=== PATIENT | female | born 1965 | race Caucasian/White ===

== ENCOUNTER → 2016-11-10 | Outpatient (CLI) | payer BC ==
--- NOTE | 2016-11-11 09:01 | Diagnostic Imaging Report ---
EXAM: Bilateral Digital Screening Mammography with computer aided detection system (CAD). DATE: November 10, 2016. COMPARISON: December 04, 2015; June 19, 2015; November 12, 2014; November 11, 2013. INDICATION: Breast cancer screening. FINDINGS: The breasts are nearly entirely fatty. There are no suspicious findings in either breast. IMPRESSION: No mammographic evidence of malignancy. Recommend annual screening mammography and clinical breast exam. ACR BI-RADS Category 2: Benign findings. Result letter will be mailed to the patient. Note: At least 10% of breast cancer is not imaged by mammography. Dictated by: Dictated on workstation # [id number]
== END ==
LOC: RAD 08:56
PROVIDERS: ATTEND Family Medicine
DX: Z12.31 Encounter for screening mammogram for malignant neoplasm of breast (principal)

== ENCOUNTER 2017-02-10 07:00 | Day surgery (SDC) | payer BC ==
[~2017-02-10] VITALS: Ht 167.6 cm; Wt 97.0 kg
[~2017-02-10 07:00] MED LIST: LACTATED RINGERS 1,000 ML IV SCH; SODIUM CHLORIDE FLUSH 3 ML SYR IV PRN
--- OUTSIDE RECORDS SUMMARY | 2017-02-10 07:04 | XMS REPORT | Continuity of Care Document ---
Author Author [facility] Address Unknown Phone Unavailable Allergies Active Description Code Type Severity Reaction Onset Reported/Identified Relationship to Patient Clinical Status Yes No Known Drug Allergies [id number] Drug Allergy Unknown N/ A 01/06/2016 Medications Problems Date Dx Coded Attending Type Code Diagnosis Diagnosed By 11/12/2014 Ot V76.12 11/12/2014 SUE HERCULES, KRISTIE Sagastume Ot V76.12 12/11/2014 VENUS HERCULES, GARRET R Ot 793.82 12/17/2014 VENUS HERCULES, GARRET R Ot V76.12 07/06/2015 VENUS HERCULES, GARRET R Ot 793.89 12/16/2015 Ot R92.2 01/30/2016 Ot R92.2 05/04/2016 Chela Easton POSTDOCTORAL SCIENTIST Ot J32.9 CHRONIC SINUSITIS, UNSPECIFIED 08/05/2016 Arnulfo HERCULES, Agustín [place] Ot Z76.89 [facility] 11/17/2016 VENUS HERCULES, GARRET R Ot Z12.31 ENCNTR SCREEN MAMMOGRAM FOR MALIGNANT [place] 11/17/2016 GARRET DONOVAN MD Ot Z12.31 ENCNTR SCREEN MAMMOGRAM FOR MALIGNANT NE 12/14/2016 GARRET DONOVAN MD R Ot Z12.31 ENCNTR SCREEN MAMMOGRAM FOR MALIGNANT NE Procedures Results Test Result Range UA (urinalysis) - 07/25/16 07:52 COLLECTION METHOD RANDOM VOIDED Color of urine by auto Yellow Urine appearance determination Clear Urine pH measurement by automated test strip 5.0 5.0 - 8.0 Specific gravity of urine by automated test strip 1.020 1.005-1.030 PROTEIN, URINE Negative Urine glucose detection by automated test strip 3+ Negative Urine erythrocytes count by automated test strip (number/volume) Trace-intact Negative Urine ketones detection by automated test strip Negative Negative NITRITE,URINE Negative Negative Urine total bilirubin detection by automated test strip Negative Negative Urine urobilinogen measurement by automated test strip (mass/volume) 0.2 0.2-1.0 Urine leukocyte esterase detection by dipstick Trace Negative Microscopic examination of urine - 07/25/16 07:52 Urine volume measurement 12 mL Urine erythrocytes detection by automated method 2-5 Automated urine sediment leukocyte count by microscopy (number/high power field ) Bacteria 2+ Negative SQUAMOUS EPITHELIAL CELL,UR 20-50 MUCOUS,URINE 1+ Complete blood count (CBC) with automated white blood cell (WBC) differential - 07/25/16 08:20 Blood automated leukocyte count 8.05 4.0 -11.0 Erythrocytes 4.45 4.00-5.00 12.0-16.0;g/dL 13.3 12.0-15.5 Hematocrit 40.30 35.00-45.00 Automated erythrocyte mean corpuscular volume 91 80-100 Mean corpuscular hemoglobin (MCH) determination 29.9 26.0-34.0 Automated erythrocyte mean corpuscular hemoglobin concentration measurement ( mass/volume) 33.0 31.0-37.0 Erythrocyte distribution width 14.0 11.8 -15.6 Automated blood platelet count 161 150- 450 Automated blood platelet mean volume measurement 11.9 6.0-9.5 Automated neutrophil percentage 68 51- 67 Lymphocytes/100 leukocytes 18 20-46 Automated monocyte percentage 10 3-11 Eosinophil count auto 5 0-4 Automated basophil percentage 0 0-2 Automated blood neutrophil count 5.4 Blood lymphocytes count (number/volume) 1.4 Automated blood monocyte count 0.8 Blood absolute eosinophil count 0.4 Basophils 0.0 HEMOGLOBIN A1C* - 07/25/16 08:20 HEMOGLOBIN A1C* 5.3 4.0-6.0 Comprehensive metabolic panel - 07/25/16 08:20 Sodium measurement 105 70-110 Carbon dioxide measurement 24 22-29 Serum or plasma anion gap 19.3 3-15 BLOOD UREA NITROGEN 40 7-18 CREATININE SERUM 1.09 0.6-1.2 Brucella species antibody panel (IgG, IgM) 37 10-20 Estimated glomerular filtration rate (GFR) 64.3 Estimated glomerular filtration rate (GFR) non- 53.1 OSMOLALITY,CALCULATED 286 280-300 CALCIUM 9.5 8.8-10.8 Calculated ionized calcium measurement 3.9 3.8-4.6 BILIRUBIN,TOTAL 1.2 0.1-1.0 Serum or plasma alkaline phosphatase measurement 76 38-126 ASPARTATE AMINO TRANSFERASE 21 15-37 ALANINE AMINOTRANSFERASE 26 30-65 Serum or plasma total protein measurement 8.1 6.4-8.5 Serum or plasma albumin measurement 4.7 3.4-5.0 Serum or plasma albumin/globulin mass ratio 1.382 1.1-1.8 THYROID STIMULATING HORMONE* - 07/25/16 08:20 THYROID STIMULATING HORMONE 0.16 0.46- 4.68 LIPID PANEL - 07/25/16 08:20 Cholesterol 134 50-200 HDL Cholesterol 55 40-60 Triglycerides 67 10-150 LDL CHOLESTEROL 66 50-130 VLDL Cholesterol, calc 13 4.00-40.00 Cholesterol.total/Cholesterol.in HDL 2.4 0.0-5.0 Encounters ACCT No. Visit Date/Time Discharge Status Pt. Type Provider Facility Loc./Unit Complaint [id number] 06/19/2015 10:59:00 2014 23:59:59 CLS Outpatient VENUS HERCULES, [facility] RAD [id number] 11/24/2014 08:50:00 2014 23:59:59 CLS Outpatient VENUS HERCULES, [facility] RAD [id number] 11/12/2014 07:39:00 2014 23:59:59 CLS Outpatient VENUS HERCULES, [facility] RAD [id number] 11/11/2013 08:18:00 2013 23:59:59 CLS Outpatient SUE HERCULES, [facility] RAD [id number] 02/10/2017 09:37:00 PEN Preadmit DAY HERCULES, [facility] ASC COLONOSCOPY [id number] 11/10/2016 08:56:00 ACT Outpatient VENUS HERCULES, [facility] RAD Z12.31 SCREENING [id number] 07/25/2016 08:00:00 ACT Outpatient Arnulfo HERCULES , Agustín [facility]LL[facility] [id number] 01/06/2016 17:02:00 [id number] 12/04/2015 09:56:00 Document Registration [id number] 11/09/2012 07:17:00 Document Registration
[2017-02-10 07:12] VITALS: BP 119/65
[2017-02-10] MEDS ORDERED: ATOR10TA56 PO (07:23)
[2017-02-10] MEDS ORDERED: LEVO125T6 PO (07:23)
[2017-02-10] MEDS ORDERED: INSU100I14 SQ (07:23)
[2017-02-10] MEDS ORDERED: INSU100I29 SQ (07:23)
[2017-02-10] MEDS ORDERED: SAXA5TAB PO (07:23)
[2017-02-10] MEDS ORDERED: ASPI-586 PO (07:23)
[2017-02-10] MEDS ORDERED: DAPA10TA PO (07:23)
[2017-02-10] MEDS ORDERED: NF-LISIN40 PO (07:23)
[2017-02-10] MEDS ORDERED: ALFENTANIL 500 MCG/ML (ALFENTA) 5 ML AMP IV ONE (07:41)
[2017-02-10] MEDS ORDERED: MIDAZOLAM 2 MG/2 ML (VERSED) VIAL ONE (07:41)
[2017-02-10] MEDS ORDERED: PROPOFOL 20 ML IV ONE (07:41)
[2017-02-10 08:51] VITALS: BP 108/57
[2017-02-10 09:10] VITALS: BP 105/67
--- NOTE | 2017-02-10 10:55 | OPERATIVE REPORT ---
DATE OF OPERATION: 02/10/2017 PRE-OPERATIVE DIAGNOSIS: Screening colonoscopy POST-OPERATIVE DIAGNOSIS: Normal colonoscopy OPERATIVE PROCEDURE: Total colonoscopy SURGEON: James Pratt MD ANESTHESIA: Monitored anesthesia care FINDINGS: 1. The bowel prep was good. 2. No neoplasia, angiodysplasia, diverticula, or inflammation were seen. INDICATION: The patient is a 51-year-old referred by Dr. Mon for colonoscopy screening. Her family history is negative for colorectal cancer. DESCRIPTION OF PROCEDURE: The patient was informed of the risks and benefits and agreed to proceed. She was placed in the left lateral decubitus position and administered IV sedation. When properly sedated a rectal exam was performed, which was normal. The lighted endoscope was then passed into the rectum and advanced along the colon to the cecum. The ileocecal valve and the appendiceal orifice were easily seen. The scope was slowly brought back through the ascending, transverse, descending, and sigmoid colon. No polyps or neoplasia were seen. The rectum appeared normal on regular view and retroflexion. The scope was removed completing the procedure. The patient tolerated the procedure without complications. With this normal colonoscopy, I recommend a repeat colonoscopy in 10 years.
== END 2017-02-10 09:16 | disposition home or self-care (01) ==
LOC: ASC 07:00
PROVIDERS: ATTEND Surgery
DX: Z12.11 Encounter for screening for malignant neoplasm of colon (principal); E11.9 Type 2 diabetes mellitus without complications; Z79.4 Long term (current) use of insulin; E66.9 Obesity, unspecified; Z68.35 Body mass index [BMI] 35.0-35.9, adult
CPT/HCPCS: 45378; J2250; J7120